=== PATIENT | male | born 1990 | race Caucasian/White ===

== ENCOUNTER 2016-12-08 23:20 | Emergency (ER) | payer SELFPAY ==
[~2016-12-08] VITALS: Ht 180.3 cm; Wt 94.5 kg
[~2016-12-08 23:20] MED LIST: TRAM50 PO
[2016-12-08 23:26] VITALS: BP 131/81; PULSE 82; RESP 16; TEMP 98; O2SAT 99
== END 2016-12-08 23:53 | disposition left against medical advice (07) ==
LOC: PHED 23:20
DX: L55.9 Sunburn, unspecified (principal)
CPT/HCPCS: 99281